=== PATIENT | female | born 1940 | race Caucasian/White ===

== ENCOUNTER 2016-09-07 05:46 | Emergency (ER) | payer OTHER, BC ==
[~2016-09-07] VITALS: Ht 162.6 cm; Wt 67.9 kg
[~2016-09-07 05:46] MED LIST: CALCIUM 600 +1 EAC5 PO; CENTRUM SILVER1 EAC3 PO; MAGNESIUM250 MG PO; MOBIC15 MG PO; MOTRIN600 MG PO; NEURONTIN100 MG PO; OSTEO BI-FLEX1 EAC1 PO; POTASSIUM GLUCO99 M1 PO; PRELIEF65 MG PO; PRILOSEC20 MG PO; URELLE,DARPA1 TABLET PO; XANAX XR0.5 MG PO; XANAX0.5 MG PO
[2016-09-07 06:41] LABS: ADD MIUA? YES; BILIRUBIN NEGATIVE; BLOOD LARGE; GLUCOSE (STRIP) NEGATIVE; KETONES NEGATIVE; LEUKOCYTES LARGE; NITRITE NEGATIVE; PROTEIN (STRIP) 100; SPECIFIC GRAVITY 1.011 (1.000-1.030); UROBILINOGEN 0.2 MG/DL (0.2-1.0)
[2016-09-07 06:43] LABS: COLOR PALE STRAW ((YELLOW))
[2016-09-07 06:56] LABS: RED BLOOD CELLS TNTC /HPF (0-5); UCUL ADDED? YES; WHITE BLOOD CELLS TNTC /HPF (0-5)
[2016-09-07 06:57] LABS: URINE COMMENT FIELD OBSCURED BY
[2016-09-07] MEDS ORDERED: CIPRO500 MG PO (07:16)
[2016-09-07] MEDS ORDERED: MOTRIN800 MG PO (07:16)
[2016-09-07 07:38] VITALS: BP 138/79
== END 2016-09-07 07:40 | disposition home or self-care (01) ==
LOC: EME 05:46
PROVIDERS: Nurse Practitioner Family
DX: N39.0 Urinary tract infection, site not specified (principal); Z87.440 Personal history of urinary (tract) infections; Z96.641 Presence of right artificial hip joint; Z87.891 Personal history of nicotine dependence
CPT/HCPCS: 81003; 87077; 87086; 87186; 99281; 99283